=== PATIENT | male | born 1955 | race Caucasian/White ===

== ENCOUNTER 2025-05-18 19:40 | Inpatient (IN) | payer MEDICARE, BC ==
[~2025-05-18] VITALS: Ht 175.3 cm; Wt 88.6 kg
[~2025-05-18 19:40] MED LIST: ALBU10.7 NEB; ASPI-1071 PO; ATOR40TA72 PO; CEFA1PIG IV; CHOL50004 PO; EMPA10TA PO; LACT1CAP26 PO; LISI5TAB22 PO; METO-395 PO; OMEP20CA16 PO; RIFA300C65 PO; SPIR25TA PO; SYN0.088T PO; VITAMIN B12 PO
--- NOTE | 2025-05-18 19:52 | Physician Documentation ---
History of Present Illness ~ Chief Complaint: Knee Pain Stated Complaint: SWOLLEN LEG Time Seen by MD: 20:55 HPI MSE: This is a 70-year-old male who presents to the emergency department due to two days of steadily increasing pain and redness in his right knee. He was admi tted to this hospital on 04/29/2025 through 05/04/2025 for a debridement and revision of spacer an infected right prosthetic knee. He had staph aureus and Gram-positive cocci grow out in the knee joint and also blood cultures that were positive for gram-positive cocci. He was discharged home on intravenous antibiotics through a PICC line. Reports that that was taken out two days ago along with the drains. He denies chills or fever, chest pain or shortness of breath. He has had no nausea or vomiting. He rates his right knee pain 8/10. He is on blood thinners. HPI: The patient tells me that over the past 24 hours his right knee has doubled in size, has a become red and hot and very painful. He has increased swelling in both of his legs including his left leg. This is also new. No fevers, chills, or other associated symptoms. No drainage from the wound. He is still on IV antibiotics via his PICC line. He has been taking them regularly. The drains from his knee were removed 2 days ago. His surgeon was Dr. Slick jarvis 5 years: Yes Medication Reconciliation Allergies: Uncoded Allergies: SHELFISH (Adverse Reaction, Unknown, SWELLING/ITCHING, 07/23/23) Scheduled Aspirin (Ecotrin*), 1 TAB PO DAILY, (Reported) Atorvastatin Calcium (Atorvastatin Calcium), 1 TAB PO DAILY, (Reported) Cefazolin Sodium/Dextrose,Iso (Cefazolin 1 Gm-D5w Bag), 1 GM IV Q8H Cholecalciferol (Vitamin D3) (Vitamin D3), 1 CAP PO TWICE WEEKLY, (Reported) Empagliflozin (Jardiance), 10 MG PO DAILY Lactobacillus Rhamnosus (Culturelle), 10,000 MMU PO BID Levothyroxine Sodium* (Synthroid*), 150 MCG PO DAILY, (Reported) Lisinopril (Lisinopril), 5 MG PO DAILY Metoprolol Succinate (Metoprolol Succinate), 0.5 TAB PO DAILY Omeprazole (Omeprazole), 1 CAP PO DAILY, (Reported) Rifampin (Rifampin), 300 MG PO BID Spironolactone (Aldactone), 25 MG PO DAILY@0830 [Vitamin B12], 1,000 MCG PO DAILY, (Reported) Scheduled PRN Albuterol Sulfate/Budesonide (Airsupra 90-80 Mcg Inhaler), 1 PUFF NEB Q4H PRN for SOB or wheezing, (Reported) Past Medical History Past Medical History: *CARDIOVASCULAR* Past Surgical History: orthopedic surgeries Alcohol Use: None Drug Use: none Lives with: Spouse Lives In: Home Review of Systems ROS As stated above in the HPI, otherwise all systems are reviewed and negative. Physical Exam Vital Signs: Temperature: 98.3, Source: Oral, Heart Rate: 59, Respiratory Rate: 16, BP: 159/80, Pulse Oximetry: 99, Weight: 88.600 Physical Exam General: This is a pleasant middle-aged man sitting in a wheelchair, is sitting in a chair next to him Respiratory: Normal work of breathing, no respiratory distress. Cardiovascular: Regular rate and rhythm, normal-appearing perfusion to the legs Extremities: Left lower extremity: The patient does have pitting edema to the calf but no tenderness Right lower extremity: The patient has a postsurgical incision over the anterior right knee. There is significant swelling, erythema and warmth over the anterior knee. It is very tender to palpation in this region. He also has pitting edema extending up the leg to the knee. Neurologic: Oriented x3 Psychiatric: Appears mildly anxious about his condition but is very pleasant and cooperative Progress Results/Orders Results/Orders Orders - EDY ELIZABETH MD ESR (05/18/25 20:57) Page Hospitalist (05/18/25 21:29) Completed Orders - EDY ELIZABETH MD Morphine 4mg/Ml Inj. (Morphine Inj.) (05/18/25 21:20) Ondansetron Inj. (Zofran 4mg/2ml Vial) (05/18/25 21:20) Vital Signs 05/18/25 05/18/25 19:42 20:51 Temp 98.3 Pulse 59 Resp 16 18 B/P (MAP) 159/80 Pulse Ox 99 Laboratory Tests Test 05/18/25 20:13 White Blood Count 5.4 Red Blood Count 3.19 L Hemoglobin 10.1 L Hematocrit 29.9 L Mean Corpuscular Volume 93.6 Mean Corpuscular Hemoglobin 31.6 H Mean Corpuscular Hemoglobin Concent 33.8 Red Cell Distribution Width 13.5 Platelet Count 287 Mean Platelet Volume 8.4 Neutrophils (%) (Auto) 52.1 Lymphocytes (%) (Auto) 16.4 L Monocytes (%) (Auto) 15.4 H Eosinophils (%) (Auto) 14.9 H Basophils (%) (Auto) 1.2 H Neutrophils # (Auto) 2.8 Lymphocytes # (Auto) 0.9 L Monocytes # (Auto) 0.8 Eosinophils # (Auto) 0.8 Basophils # (Auto) 0.1 CBC Comment Differential Total Cells Counted 100 Neutrophils % (Manual) 53.0 Band Neutrophils % 5.0 Lymphocytes % (Manual) 17.0 L Monocytes % (Manual) 13.0 H Eosinophils % (Manual) 12.0 H Platelet Estimate Normal Red Blood Cell Morphology Perf Poikilocytosis 1+ Basophilic Stippling Anisocytosis 1+ Sodium Level 140 Potassium Level 4.2 Chloride Level 107 Carbon Dioxide Level 28.4 Anion Gap 5 L Blood Urea Nitrogen 18 Creatinine 1.19 H Estimated GFR/1.73 m2 61 BUN/Creatinine Ratio 15.1 Glucose Level 118 H Lactic Acid Level 1.1 Calcium Level 8.1 L Magnesium Level 2.0 C-Reactive Protein 4.01 H Albumin 2.8 L Procalcitonin < 0.05 Chemistry Comments Consults/PCP Consults/PCP : Additional Comment Consult: I spoke to Dr. Cabrera, orthopedics team. He recommends admission and he will alert Dr. Kruger to consult on the patient tomorrow Consult: I spoke to the internal medicine service, for admission in the hospital Medical Decision Making Additional information obtaine: old records Findings Reviewed records from recent hospitalization. General Diff Dx:Considerations: Include: Abrasion, Contusion, Fracture, Hematoma, Laceration, Malunion, Neurovascular injury, Open fracture, Sprain, Ulcer, Other Knee Diff Dx:Considerations: Include: Other; Unlikely: Arthritis Ankle Diff Dx:Considerations: Include: Other; Unlikely: Arthritis Foot Diff Dx:Considerations: Include: Other; Unlikely: Arthritis Toe Diff Dx:Considerations: Include: Cellulitis, Other Additional Comment Most Likely Diagnoses Cellulitis at or near the prosthetic joint or PICC line site is likely, given new erythema and worsening pain without systemic symptoms. Cellulitis typically presents with localized erythema, pain, swelling, and warmth, and fever is often absent, especially in older adults or those on antibiotics. Localized infection at the PICC site can present similarly, with erythema, induration, and tenderness at the exit or tunnel site.[1-2] Recurrent or persistent periprosthetic joint infection (PJI) should be considered, as PJI can present with pain, erythema, and swelling, often without fever, particularly in chronic or partially treated cases. Local signs may be subtle, and systemic symptoms may be blunted by ongoing antibiotics.[3] Superficial vein thrombosis (SVT) or catheter-associated thrombophlebitis is possible, especially in the limb with a PICC line. SVT presents as a tender, erythematous, palpable cord, and is commonly associated with indwelling catheters.[4] Antibiotic-related hypersensitivity dermatitis may present as localized erythema and pain, but is less likely if the reaction is not pruritic or widespread and is associated with pain rather than itching.[5] Most Important Not to Miss Diagnoses Necrotizing soft tissue infection (NSTI) must be excluded, as it can initially mimic cellulitis but rapidly progresses with severe pain (often out of proportion to exam), edema, skin necrosis, or systemic toxicity. Absence of fever does not rule out NSTI, especially in immunocompromised or elderly patients. Serial exams and laboratory risk assessment (e.g., LRINEC score) are critical; any rapid progression or systemic deterioration warrants urgent surgical evaluation.[6] Catheter-related bloodstream infection (CRBSI) is a critical consideration, as local PICC site infection can progress to bacteremia or sepsis. Diagnosis requires blood cultures from the catheter and a peripheral site, and exclusion of other infection sources.[7] Acute septic arthritis or contiguous osteomyelitis should be considered if there is new or worsening joint pain, swelling, or decreased range of motion, even in the absence of fever. Synovial fluid analysis and imaging may be required for diagnosis.[3][8] Assessment The patient presents with redness, swelling, pain, and warmth to his right knee. His exam is concerning for an infection again. He is already on antibiotics. Labs show no significant leukocytosis. Inflammatory markers are pending. Orthopedics team was consulted as above. He will be admitted to the medicine service for antibiotics and surgical consult. Was given pain medication. Departure Impression: Primary Impression: Infected prosthetic knee joint Referrals: NO PRIMARY CARE PROVIDER (PCP) Signature Scribe Signature: x Attestation: The note accurately reflects work and decisions made by me.Dexter Devlin NP 05/18/25 19:59 DEXTER PRESLEY NP May 18, 2025 19:52 EDY ELIZABETH MD May 18, 2025 21:34
--- NOTE | 2025-05-18 20:20 | RADIOLOGY REPORT ---
CHEST RADIOGRAPH REASON FOR EXAM: SEPSIS COMPARISON: ANGIO LINE PLACEMENT(PICC NURSE) on DOS: 05/04/25, DI CHEST,SINGLE VIEW on DOS: 04/29/25 TECHNIQUE: One view of the chest is provided FINDINGS: The cardiomediastinal silhouette is stable. There is persistent elevation of the right hemidiaphragm. There is no lobar consolidation. There is no significant pleural effusion. There is no pneumothorax. No acute osseous abnormality is identified. IMPRESSION: Persistent elevation of the right hemidiaphragm. No lobar consolidation.
--- NOTE | 2025-05-18 20:29 | ELECTROCARDIOGRAPH REPORT ---
[facility] Test Date: 2025-05-18 Test Time: 20:26:12 Pat Name: JOE PRATT Department: [facility] Patient ID: [facility]-[id number] Room: [place] [address] Gender: M Packager Hand: : 1955 Requested By: DEXTER PRESLEY Order Number: [id number] Reading MD: Dr. Zoran Gardiner Measurements Intervals [place] Rate: 55 P: 45 KS: 135 QRS: -5 QRSD: 107 T: -12 QT: 412 QTc: 394 Interpretive Statements Sinus bradycardia RSR' in V1 or V2, right VCD or RVH Inferior infarct, age indeterminate Electronically Signed On 05-22-2025 20:44:[address] Zoran Gardiner Please click the below link to view image of tracing.
[2025-05-18 20:30] LABS: MEAN PLATELET VOLUME 8.4 FL (7.4-10.4); RED CELL DISTRIBUTION WIDTH 13.5 % (11.5-14.5)
[2025-05-18 20:43] LABS: CREATININE 1.19 MG/DL (0.60-1.10); TOTAL CARBON DIOXIDE 28.4 MMOL/L (24-32); eCRCL 59 ML/MIN; eGFR 61 ML/MIN
--- NOTE | 2025-05-18 20:59 | RADIOLOGY REPORT ---
EXAM: DI KNEE 3 VWS REASON FOR EXAM: swelling, pain TECHNIQUE: AP, lateral, and oblique views of the right knee are submitted for review. COMPARISON: None FINDINGS: There is no acute fracture or dislocation. There is total knee arthroplasty. There is no evidence of hardware loosening. There is no significant knee effusion. There is [id number] soft tissue edema about the knee. IMPRESSION: No acute fracture or dislocation. [id number] soft tissue edema about the knee.
[2025-05-18 21:08] LABS: BANDS% (MANUAL) 5.0 % (0-10); EOSINOPHILS % (MANUAL) 12.0 % (0-6); LYMPHOCYTES % (MANUAL) 17.0 % (21-51); MONOCYTES % (MANUAL) 13.0 % (2-12); NEUTROPHILS % (MANUAL) 53.0 % (42-75)
[2025-05-18 21:09] LABS: PLATELET ESTIMATE NORMAL
[2025-05-18] MEDS: morphine 4 MG/ML inj SYRINge IV ONE (21:33)
[2025-05-18] MEDS: ondansetron/PF 4mg/2ml inj IV ONE (21:33)
[2025-05-18] MEDS ORDERED: magnesium Cl slow-release 64mg tablet PO PRN (21:55)
[2025-05-18] MEDS ORDERED: magnesium sulf-water 2g/50mL 50 ML IV PRN (21:55)
[2025-05-18] MEDS ORDERED: potassium Cl 20 mEq SR tablet PO PRN ×2 (21:55)
[2025-05-18] MEDS ORDERED: magnesium sulf-water 4G/100mL 100 ML IV PRN (21:55)
[2025-05-18] MEDS ORDERED: ondansetron 4mg rapidly disintigrating tab PO PRN (21:55)
[2025-05-18] MEDS ORDERED: mag hydrox/Alum hydrox/simeth 30ml oral suspension PO PRN (21:55)
[2025-05-18] MEDS ORDERED: potassium Cl 40MEQ/1/2NS 520ml 520 ML IV PRN (21:55)
[2025-05-18] MEDS ORDERED: ondansetron/PF 4mg/2ml inj IV PRN (21:55)
[2025-05-18] MEDS ORDERED: magnesium hydroxide 30ml (MOM) UD suspension PO PRN (21:55)
--- NOTE | 2025-05-18 22:07 | HISTORY AND PHYSICAL-Residence ---
History & Physical Providers to CC Resident Creating Document: QUANG SANCHEZ, RES ~ History of Present Illness Reason for Admit\Complaint: Right knee Swelling History of Present Illness This is a 70-year-old male who presents to the emergency department with a 2-day history of progressively worsening right knee pain, swelling, and erythema. The patient reports that over the past 24 hours, his right knee has doubled in size becoming increasingly red, warm, and painful, with a pain severity of 8/10. He also notes new swelling in his left leg, which he has not experienced before. He denies fever, chills, chest pain, shortness of breath, nausea, vomiting, or drainage from the surgical site. 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 Cultures from the joint and blood were positive for Staphylococcus aureus and Gram-positive cocci. He was discharged home on IV Cefazolin via a PICC line for 6weeks, which was removed two days ago along with surgical drains. He reports adherence to the antibiotic regimen. His orthopedic surgeon is Allergies: Uncoded Allergies: SHELFISH (Adverse Reaction, Unknown, SWELLING/ITCHING, 07/23/23) Home Medications Home Medications Active Cefazolin 1 Gm-D5w Bag (Cefazolin Sodium/Dextrose,Iso) 1 Gram/50 Ml Piggyback 1 Gm IV Q8H 42 Days Metoprolol Succinate 25 Mg Tab.sr.24h 0.5 Tab PO DAILY 30 Days Jardiance (Empagliflozin) 10 Mg Tablet 10 Mg PO DAILY 30 Days Culturelle (Lactobacillus Rhamnosus) 10 Billion Cell Capsule 10,000 Mmu PO BID 30 Days Aldactone (Spironolactone) 25 Mg Tablet 25 Mg PO DAILY@0830 30 Days Lisinopril 5 Mg Tablet 5 Mg PO DAILY 28 Days Rifampin 300 Mg Capsule 300 Mg PO BID 42 Days Reported Synthroid* (Levothyroxine Sodium) 88 Mcg Tablet 150 Mcg PO DAILY 30 Days Airsupra 90-80 Mcg Inhaler (Albuterol Sulfate/Budesonide) 90 Mcg-80 Mcg/Actuation Hfa.aer.ad 1 Puff NEB Q4H PRN Omeprazole 20 Mg Capsule.dr 1 Cap PO DAILY Vitamin D3 (Cholecalciferol (Vitamin D3)) 125 Mcg (5000 Unit) Capsule 1 Cap PO TWICE WEEKLY [Vitamin B12] 1,000 Mcg PO DAILY Atorvastatin Calcium 40 Mg Tablet 1 Tab PO DAILY Ecotrin* (Aspirin) 81 Mg Tablet. 1 Tab PO DAILY Past Medical History Past Medical History Maricruz's thyroiditis MT s/p stent CAD Seasonal asthma Past Surgical History Surgical History Comment Total Right knee replacement Revision of right knee replacement on April 10, 2025 Left wrist fusion Right shoulder repair for torn rotator cuff Placement of stent for MT Past Social History Social History Comment He quit smoking 30 years ago, he used to smoke a pack a day for approximately 10 years He denies alcohol and recreational drug use Alcohol Use: None Drug Use: None Lives with: Spouse Lives In: Home ROS Constitutional: Reports: no symptoms reported Eyes: Reports: no symptoms reported ENT: Reports: no symptoms reported Respiratory: Reports: no symptoms reported Cardiovascular: Reports: no symptoms reported Gastrointestinal: Reports: no symptoms reported Genitourinary: Reports: no symptoms reported Male Genitalia: Reports: no symptoms reported Neurological: Reports: no symptoms reported Musculoskeletal: Reports: pain, joint pain (Right knee pain+ swelling), joint swelling Integumentary: Reports: no symptoms reported Allergic/Immunologic: Reports: no symptoms reported Hematologic/Lymphatic: Reports: no symptoms reported Endocrine: Reports: no symptoms reported Psychiatric: Reports: no symptoms reported Exam Vitals: Vital Signs Date Time Temp Pulse Resp B/P (MAP) Pulse Ox O2 Delivery O2 Flow Rate FiO2 05/18/25 20:51 18 05/18/25 19:42 98.3 59 99 General: GENERAL: Awake, alert, oriented. HEENT : Normocephalic, atraumatic, pupils equal and reactive to light, extraocular movements intact, no scleral icterus or conjunctival pallor, oral mucosa moist NECK: neck is supple, trachea midline, no lymphadenopathy, no thyromegaly, no JV distention RESPIRATORY: Chest expansion equal bilaterally, breath sounds vesicular, no wheezes, or rhonchi. No use of accessory muscles, no tenderness on palpation. CARDIOVASCULAR: S1 and S2 heard, no murmurs, no rubs, or gallops ABDOMEN: Soft, nontender, nondistended, bowel sounds present and normoactive. NEUROLOGICAL: Alert, oriented, normal memory, speech is normal Cranial nerves II-XII- intact Motor strength 5/5 Sensation-intact in all extremities Reflexes +2 and symmetrical Coordination is intact EXTREMITIES: Right knee swelling+redness+warm+Tender to touch, PICC line on left hand, peripheral pulses felt, No deformities Psychiatric:Appropriate mood and affect,No hallucinations or suicidal ideation Diagnostic Data Last Recorded Lab Results: 05/19/2515205/19/25152 Advance Care Planning Advanced Care plannin - 30 Minutes Additional Plan 70 years old male with past medical history of coronary artery disease, hypothyroidism is currently evaluated for right knee swelling Right Knee Swelling S/P infected Knee Prosthesis Vitals are stable, WBC is normal, procalcitonin is normal,ESR 54, CRP 4.01- elevated Knee XRay- No acute fracture or dislocation. [id number]-[id number] soft tissue edema about the knee. Patient recently discharged with 6 weeks course of ABX, today patient presents with Redness and swelling around right knee joint ED Doctor consulted surgeon Continue Abx- Cefazolin 1g IV Q8H and Rifampin Po 300mg BID Started IV NS 100 ml/hr Monitor daily CBC/CMP Normocytic normochromic anemia H&H-10.1/29.9 Iron 18, TIBC 179, % saturation-10 PRBC if Hb is less than 7 Moderate protein malnutrition Continue ensure enlive PO Hypothyroidism History of Maricruz's thyroiditis Started home med levothyroxine 150 mcg CAD, history of MT s/p stent placement Chronic Congestive heart failure with reduced ejection fraction-LVEF is 45% on 05/01/25-not in acute decompensation CXR -Persistent elevation of the right hemidiaphragm. No lobar consolidation. Patient home meds are Lisinopril 5mg , metoprolol tartrate 25 mg at home, continue home med- Lisinopril med rec is pending Continue home med Jardiance, Spironolactone Code Status: Full DVT prophylaxis: SCDs Analgesia/Sedation: Morphine Line/tube: PICC PT: Ordered Prognosis: Guarded Disposition: Patient will be monitored in surgery Quang Sanchez PGY1-Internal Medicine Resident Date of Service: May 18, 2025 Billing Provider: ANUSHA RAPHAEL MD Addendum Attestation I agree with the residents assessment and plan as below: 70 year old male with hfref and CAD admitted with knee swelling. he has hx of surgery to the knee complicated by an infection requiring long course of abx Plan: restart cefazolin and rifampin ortho consult PT and OT levothyroxine at home dose restart home DDMT medications CCT 54 min using HIPPA compliant A/V technology QUANG SANCHEZ, RES May 18, 2025 22:07 ANUSHA RAPHAEL MD May 19, 2025 19:42
[2025-05-18] MEDS ORDERED: SPIR25TA5 PO (22:08)
[2025-05-18] MEDS ORDERED: OXYC5TAB2 PO (22:08)
[2025-05-18] MEDS: normal saline 1000ml 1,000 ML IV SCH (22:37)
[2025-05-19] VITALS (22 sets, daily range): BP systolic 124–172; BP diastolic 55–82; PULSE 56–98; RESP 12–18; TEMP 97.6–99.6; O2SAT 88–99
[2025-05-19] MEDS: HYDROcodone/acetaminophen 5mg/325mg tablet PO ONE (01:53)
[2025-05-19 02:23] LABS: MEAN PLATELET VOLUME 8.5 FL (7.4-10.4); RED CELL DISTRIBUTION WIDTH 13.4 % (11.5-14.5)
[2025-05-19 02:45] LABS: CREATININE 0.87 MG/DL (0.60-1.10); TOTAL CARBON DIOXIDE 27.8 MMOL/L (24-32); eCRCL 81 ML/MIN; eGFR 87 ML/MIN
[2025-05-19 02:50] LABS: % IRON SATURATION 10 % (11-46)
[2025-05-19 03:46] LABS: LEUKOCYTE ESTERASE ,URINE NEGATIVE (Neg); NITRITES, URINE NEGATIVE (Neg); OCCULT BLOOD,URINE SMALL (Neg)
[2025-05-19 03:52] LABS: UA COLLECTION TYPE NON-SPECIFIED
[2025-05-19 03:53] LABS: SQUAMOUS EPITHELIAL CELL,UR FEW /LPF (FEW)
[2025-05-19 03:55] LABS: YEAST FEW /HPF (NEGATIVE)
[2025-05-19] MEDS ORDERED: levoTHYROXINE 88mcg tablet PO SCH (07:00)
[2025-05-19] MEDS ORDERED: levoTHYROXINE 75mcg tablet PO SCH (07:28)
[2025-05-19] MEDS: levoTHYROXINE 75mcg tablet PO SCH (07:29)
[2025-05-19] MEDS: EMPAGLIFLOZIN 10 MG TABLET PO SCH (08:00)
[2025-05-19] MEDS: Ensure Enlive - 237ML PO SCH (08:00)
[2025-05-19] MEDS: aspirin 81mg, enteric-coated 1 TAB TABLET.DR PO SCH (08:00)
[2025-05-19] MEDS ORDERED: metoprolol succinate 25mg (24-HOUR) SR. Tablet PO SCH (08:00)
[2025-05-19] MEDS: K and/or MAG REPLACEMENT MC SCH (08:00)
[2025-05-19] MEDS: docusate sod 100mg capsule PO SCH (08:00)
[2025-05-19] MEDS: ceFAZolin/D5W- 1GM premix 50 ML IV SCH (09:13)
[2025-05-19] MEDS ORDERED: oxyCODONE/APAP 5-325mg tablet PO PRN (09:25)
[2025-05-19] MEDS ORDERED: vancomycin inj 1,000 MG in normal saline 250ml IV soln 250 ML IV ONE (09:30)
[2025-05-19] MEDS ORDERED: hydrALAZINE 20mg/ml inj. IV PRN (10:35)
[2025-05-19] MEDS ORDERED: morphine 4 MG/ML inj SYRINge IV PRN (10:35)
[2025-05-19] MEDS: ringers solution, lacted 1,000 ML IV SCH (10:35)
[2025-05-19] MEDS ORDERED: ondansetron/PF 4mg/2ml inj IV PRN (10:35)
[2025-05-19] MEDS ORDERED: labetalol 20mg/4ml (5mg/ml) syringe IV PRN (10:35)
[2025-05-19] MEDS ORDERED: HYDROmorphone/PF 0.2 MG/ML SYRINGE IV PRN ×2 (10:35)
[2025-05-19] MEDS: vancomycin/NS 1 GM ADD-VANTAGE 250 ML IV SCH (11:00)
[2025-05-19 11:23] LABS: PRE OP INR 1.1 INR; PRE OP PARTIAL THROMB. TIME 33.0 SECONDS (22-32); PRE OP PROTIME 11.4 SECONDS (9.0-12.0)
[2025-05-19] MEDS ORDERED: tetracaine 1% (10mg/ml) pres. free inj. ONE (11:53)
[2025-05-19] MEDS ORDERED: MIDAZolam 1mg/ml 10ml vial ONE (11:54)
[2025-05-19] MEDS ORDERED: fentaNYL/PF 50MCG/1 ML 2ML syringe ONE (11:55)
--- NOTE | 2025-05-19 12:20 | PROGRESS NOTE ---
H&P - Interval Note Providers to CC ~ Patient examined and condition: Yes Interval changes as follows: none MATIAS MCKEON MD May 19, 2025 12:20
--- NOTE | 2025-05-19 12:32 | CONSULTATION REPORT ---
CONSULTATION REPORT CONSULTATION REPORT Visit Date: 05/19/2025 Drug Allergy SHELL FISH Active Medications levothyroxine 150 mcg tablet Take 1 Tablet(s) Oral daily 90 days, 90 days. albuterol-budesonide inhalation oxycodone 5 mg tablet Take 1 Tablet(s) Oral every 6 hours as needed for pain 7 days, 7 days. Completed Rx. acetaminophen 500 mg tablet Take 1 Tablet(s) Oral three times a day as needed for pain 33 days, 33 days. Completed Rx. losartan 50 mg tablet, oral. ibuprofen 600 mg tablet Take 1 Tablet(s) Oral three times a day 30 days, 30 days. Completed Rx. metoprolol tartrate 50 mg tablet Take 1 Tablet(s) Oral two times a day with food 90 days, 90 days. aspirin 81 mg tablet,delayed release, oral. aspirin 325 mg tablet TAKE 1 TABLET BY MOUTH EVERY DAY FOR ONE MONTH AFTER SURGERY 90 days 1 refill, 90 days. Completed Rx. Airsupra inhalation omeprazole 20 mg capsule,delayed release Take 1 Tablet(s) Oral daily 90 days, 90 days. Fall Risk Assessment Any falls, or one fall without injury in the past year: No falls, or one fall without injury in the past year. No Active Problems Heart disease Thyroid problems Surgical History (38033) Revision, Total Knee Arthroplasty, 1 component; Performed: 04/10/2025 Cardiac surgery Notes: stents placed x9 Knee replacement shoulder surgery Notes: right rotator cuff Social History Marital status Tobacco history Former smoker over 40 years Alcohol history Never drinks alcohol in the past only Family History Relationship: Father Recorded Date: May 26, 2023 Notes: Alive Relationship: Mother Recorded Date: May 26, 2023 Notes: Breast Cancer HPI Presented yesterday to the hospital again because of extreme knee pain and increased swelling. Vitals Physical Exam Constitutional: general appearance- Overall: well developed, in no acute distress and well n ourished Psychiatric: orientation/consciousness- Level of consciousness: alert; Overall: oriented to person, place and time; behavior/psychomotor activity; Mental Status alert and oriented x3; Mood: appropriate emotional responses Musculoskeletal: head and neck- Head: normocephalic; digits and nails; Overall: no clubbing and digits benign Ears/Nose/Throat: general ENT exam- eyes Pupils equal and reactive to light; ears normal hearing, ear canals, and tympanic membranes; nose normal nares with no obstruction; throat normal pharynx Neurologic: coordination- Overall: no tremors; motor; Overall: normal bulk, tone Cardiovascular: extremities- Overall: no edema; auscultation of heart; Overall: regular rate, regular rhythm, normal heart sounds and no murmurs Respiratory: respiratory effort/rhythm- Overall: no retractions and normal rate; auscultation; Overall: breath sounds clear bilaterally; percussion; Overall: benign percussion Abdomen: abdominal exam- Overall: no tenderness and normal bowel sounds Integument: inspection of skin- Overall: no rash, lesions Physical Exam Physical examination does indeed show that the right knee is very swollen and tender. It is warm. There is no particular erythema. Range of motion of the knee is quite painful. Diagnosis [id number] Infection and inflammatory reaction due to internal right knee prosthesis, initial encounter Services Performed [id number] Initial Hospital Inpatient or Observation Care - Moderate Level, 55 mins Plan Patient will be kept NPO and will be taken to the operating room today for surgery as soon as possible. He has already had an attempt at debridement and closure so he will now undergo removal of his total knee arthroplasty with plans for his two stage reconstruction. Risks benefits potential complications and expected results of this have been explained to the patient and his family they wished to proceed A copy of this note was faxed to: Jasmina Serrato PA-C Electronically signed by: Carloz Kruger MD, YESY BHATTI Board Certified Sports Medicine Diplomate, [place] [employer] Fellow, [employer] ~ [employer] ORDER PLACED: CARLOZ Millard MD May 19, 2025 12:32
[2025-05-19] MEDS ORDERED: vancomycin 1,000mg inj ONE ×2 (13:02)
[2025-05-19] MEDS ORDERED: ePHEDrine 50MG/ML INJ. ONE (14:29)
--- NOTE | 2025-05-19 15:32 | OPERATIVE REPORT ---
Operative Report Operative Report OPERATIVE REPORT [facility] [address] [place] [address] Date of service: May 19, 2025 PREOPERATIVE DIAGNOSIS [id number] Infection and inflammatory reaction due to internal right knee prosthesis, initial encounter POSTOPERATIVE DIAGNOSIS [id number] Infection and inflammatory reaction due to internal right knee prosthesis, initial encounter Operation Performed [id number] Removal, Knee Prosthesis, w/wo Spacer Insertion with this modifier: RT Procedure: Removal, right total knee arthroplasty with implantation of antibiotic spacer. Surgeon: Dr. Carloz Kruger Gluing Machine Adjuster: None Anesthesiologist: Dr. Lujan Anesthesia: General anesthetic and left femoral block Indications: 70-year-old male who recently underwent revision surgery followed by near immediate infection with debridement, now on antibiotic treatment but admitted for increasing pain. Admitted to the hospital with recurrent infection Indications for assistant winemaker surgeon: A second set of skilled hands with specific orthopedic knowledge of the surgical procedure and orthopedic surgical techniques was necessary to accomplish this operation successfully, and with the least amount of morbidity for the patient. This facilitated operative exposure, manipulation and handling of tissues, placement of any implants, and accompl ishment of wound closure. The assistant winemaker surgeon facilitated tissue exposure during the surgical dissection. The assistant winemaker surgeon aided with manipulation of materials and implantation of implants. The assistant winemaker surgeon and the operating surgeon cooperated together in wound closure. Findings: The femoral component was fixated but the interface was loosened without difficulty potentially indicating chronic infection of the subacute nature. The tibial component was solidly fixated. The patellar component was solidly fixated. There is purulent fluid and purulent material within the joint. Complications: None Estimated Blood Loss: 500 cc Implants: Antibiotic impregnated cement spacers were utilized. A large femoral component was used, and a size medium tibial component was used. Rally G. cement was utilized. Procedure: The risks, benefits, expected results, and possible complications of the planned procedure had been explained to the patient and informed consent obtained. The patient was taken to the operating room and underwent ageneral anesthetic. The patient was placed in the supine position on the operating table, and the right leg was prepped and draped in the usual fashion. A timeout was taken prior to surgery, confirming patient identification, operative side operative site, planned procedure, administration of pre-operative antibiotics, site marking, and presence of all necessary implants and instruments, x-rays and equipment. A standard surgical approach was performed through the prior surgical incision, with a medial parapatellar arthrotomy, and midline quadriceps split. Prior to performing the retinacular incision, a spinal needle was placed into the joint and synovial fluid removed. The fluid was cloudy and yellow, and appeared infected. It was sent to the laboratory for analysis, including Gram stain and culture and sensitivity. Additional tissue samples were also sent. Time was then spent removing excessive synovial tissue and exposing the medial and lateral gutters, as well as exposing the tibial, femoral, and patellar components.. The patella was mobilized to be able to be retracted laterally. This gave exposure of the anterior aspect of the knee. After exposing all 3 component,s the stability of each component as it related to its fixation to the bone was visualized, and findings were as noted above. At this point I decided that the primary reason for the patients continued pain and difficulties was because the knee had a chronic infection. I therefore decided to proceed with removal of implants and placement of an antibiotic spacer. I then spent a considerable length of time meticulously dissecting between compo nents and bone with thin flexible osteotomes and a small saw blade blade, in order to remove the components without excessive bone loss. The femoral component was addressed first and was removed without excessive loss of bone. Next, we removed the tibia in a similar fashion, and the tibia was removed without excessive loss of bone. Finally, the patella was removed with an oscillating saw, followed by removal of remaining cement and plastic pegs with a small rongeur and a curette. Next, we spent a fair bit of time performing meticulous resection of inflamed synovial tissue and making sure that every single bit of residual bone cement was removed from the end of the femur and from the proximal tibia. I sized the femoral and tibial residual bone and also compared with sizing of the previously implanted components, and selected the proper Remedy antibiotic spacer sizes for both femur and tibia. Trials were then removed and cut surfaces of bone and the soft tissue was lavaged with the pulsating lavage system. A tourniquet was inflated to 300 mmHg after exsanguination of the leg with an Esmarch. I did meticulous, final cleanup of soft tissue and removal of remnants of bone cement. 2 batches of cement were mixed and the spacers were implanted in the usual fashion. We gained excellent fill of the space and reasonable stability of the knee. Biodegradable antibiotic beads were also placed in the knee joint. While the second batch of cement was curing the knee was also injected with our ropivacaine anesthetic mixture containing 1% ropivacaine, 30 mg of Toradol, and 70 cc of saline. Upon complete hardening of all cement, the knee was inspected and excess cement removed. We lavaged the knee to wash out any debris and checked to make sure we had no impinging cement. The tourniquet was then deflated and hemostasis obtained with electrocautery. The wound was then irrigated thoroughly one more time. The retinacular incision was closed with #2 strata fix suture, and subcutaneous tissue closed with #0 strata fix suture. Skin was closed with 4-0 strata fix suture. A sterile dressing was applied, and the patient was returned to the recovery room in satisfactory condition. Electronically Signed by: Carloz Kruger MD Doctor, Orthopedic Surgery Signed on: 05/19/2025 03:31 PM CARLOZ KRUGER MD May 19, 2025 15:32
[2025-05-19] MEDS: piperacillin/tazo 4.5gm/100ml 100 ML IV SCH (19:55)
--- NOTE | 2025-05-19 20:20 | PROGRESS NOTE ---
Daily Progress Note Providers to CC ~ Antibiotic Timeout Antibiotic Ordered?: Yes Subjective Spoke to Dr. Kruger orthopedic surgeon this morning and changed antibiotics to IV Zosyn and IV vancomycin the patient has subsequently went to the OR and had his hardware removed from his right knee. Evaluated the patient postop Objective Vital Signs Date Time Temp Pulse Resp B/P (MAP) Pulse Ox O2 Delivery O2 Flow Rate FiO2 05/19/25 19:00 20 05/19/25 16:50 138/70 (92) 05/19/25 16:20 64 92 Nasal Cannula 2.0 05/19/25 14:55 97.5 Result Diagram: 05/19/25 0153 05/19/25 0153 Gen. No acute distress alert and oriented 4 Lungs clear to ascultation bilaterally, no wheezes rales or rhonchi appreciated Heart normal sinus rhythm no murmurs rubs or clicks noted Abdomen soft nontender bowel sounds are normoactive Lower extremities no clubbing cyanosis, nor edema appreciated left, long postop dressing and Velcro brace is in place on the right Coagulation Studies Laboratory Tests Test 05/19/25 10:58 Prothrombin Time 11.4 SECONDS (9.0-12.0) INR International Normalized Ratio 1.1 INR Activated Partial Thromboplast Time 33 SECONDS (22-32) H Problem\Assessment\Plan Problems/Diagnosis: (1) Infected prosthetic knee joint Right Knee Swelling S/P infected Knee Prosthesis Vitals are stable, WBC is normal, procalcitonin is normal,ESR 54, CRP 4.01- elevated Knee XRay- No acute fracture or dislocation. Uoai-gw-xiyoaoas soft tissue edema about the knee. Patient recently discharged with 6 weeks course of ABX, today patient presents with Redness and swelling around right knee joint ED Doctor consulted surgeon 05/[address] Kruger orthopedic surgeon this morning and changed antibiotics to IV Zosyn and IV vancomycin the patient has subsequently went to the OR and had his hardware removed from his right knee- also sent a text message to consult Dr Amanda Jang DO Infectious Disease who will consult on the patient Normocytic normochromic anemia Continue monitor daily labs PRBC if Hb is less than 7 Moderate protein malnutrition Continue ensure enlive PO Hypothyroidism History of Maricruz's thyroiditis Started home med levothyroxine 150 mcg CAD, history of [place] s/p stent placement Chronic Congestive heart failure with reduced ejection fraction-LVEF is 45% on 05/01/25-not in acute decompensation CXR -Persistent elevation of the right hemidiaphragm. No lobar consolidation. Patient home meds are Lisinopril 5mg , metoprolol tartrate 25 mg at home, continue home med- Lisinopril med rec is pending Continue home med Jardiance, Spironolactone Date of Service: May 19, 2025 Billing Provider: MARY JO FLAHERTY DO Common Visit Codes: [id number] INP/OBS CARE(HIGH) MARY JO FLAHERTY DO May 19, 2025 20:20
[2025-05-19 20:55] LABS: MEAN PLATELET VOLUME 8.3 FL (7.4-10.4); RED CELL DISTRIBUTION WIDTH 13.4 % (11.5-14.5)
[2025-05-20] VITALS (10 sets, daily range): BP systolic 125–152; BP diastolic 57–78; PULSE 80–89; RESP 16–20; TEMP 98.4–102.2; O2SAT 92–95
[2025-05-20 07:10] LABS: MEAN PLATELET VOLUME 8.5 FL (7.4-10.4); RED CELL DISTRIBUTION WIDTH 13.3 % (11.5-14.5)
[2025-05-20 07:37] LABS: CREATININE 0.74 MG/DL (0.60-1.10); TOTAL CARBON DIOXIDE 27.9 MMOL/L (24-32); eCRCL 96 ML/MIN; eGFR > 90 ML/MIN
[2025-05-20] MEDS: metoprolol succinate 25mg (24-HOUR) SR. Tablet PO SCH (07:44)
--- NOTE | 2025-05-20 08:56 | PROGRESS NOTE ---
Daily Progress Note Providers to CC ~ Antibiotic Timeout Antibiotic Ordered?: Yes Subjective The patient has no acute complaints other than pain in his right knee. Last night the the patients RN has a place a pressure dressing since there was bleeding from the surgical site. Objective Vital Signs Date Time Temp Pulse Resp B/P (MAP) Pulse Ox O2 Delivery O2 Flow Rate FiO2 05/20/25 07:43 82 05/20/25 06:30 99.8 19 133/69 (90) 95 05/20/25 02:00 Nasal Cannula 1.0 05/20/25 01:22 94 Result Diagram: 05/20/2560405/20/25604 Gen. No acute distress alert and oriented 4 Lungs clear to ascultation bilaterally, no wheezes rales or rhonchi appreciated Heart normal sinus rhythm no murmurs rubs or clicks noted Abdomen soft nontender bowel sounds are normoactive Lower extremities no clubbing cyanosis, nor edema appreciated left, long postop dressing and Velcro brace is in place on the right Coagulation Studies Laboratory Tests Test 05/19/25 10:58 Prothrombin Time 11.4 SECONDS (9.0-12.0) INR International Normalized Ratio 1.1 INR Activated Partial Thromboplast Time 33 SECONDS (22-32) H Problem\Assessment\Plan Problems/Diagnosis: (1) Infected prosthetic knee joint Right Knee Swelling S/P infected Knee Prosthesis Vitals are stable, WBC is normal, procalcitonin is normal,ESR 54, CRP 4.01- elevated Knee XRay- No acute fracture or dislocation. Eaiy-ck-jklxagyf soft tissue edema about the knee. Patient recently discharged with 6 weeks course of ABX, today patient presents with Redness and swelling around right knee joint ED Doctor consulted surgeon 05/[address] Kruger orthopedic surgeon this morning and changed antibiotics to IV Zosyn and IV vancomycin the patient has subsequently went to the OR and had his hardware removed from his right knee- also sent a text message to consult Dr Amanda Jang DO Infectious Disease who will consult on the patient 05/20 pressure dressing was placed by RN last evening due to some bleeding from the surgical site which is to be expected Normocytic normochromic anemia Post op anemia- expected occurrence with a hardware removal not a complication of surgery Continue monitor daily labs PRBC if Hb is less than 7 Moderate protein malnutrition Continue ensure enlive PO Hypothyroidism History of Maricruz's thyroiditis Continue home med levothyroxine 150 mcg CAD, history of [place] s/p stent placement Chronic Congestive heart failure with reduced ejection fraction-LVEF is 45% on 05/01/25-not in acute decompensation Hyperlipidemia Continue 81 mg aspirin daily Continue atorvastatin Spironolactone Metoprolol succinate Jardiance Lisinopril Hold DVT prophylaxis for now due to postop anemia and bleeding from postop site Date of Service: May 20, 2025 Billing Provider: MARY JO FLAHERTY DO Common Visit Codes: [id number] INP/OBS CARE(HIGH) MARY JO FLAHERTY DO May 20, 2025 08:56
--- NOTE | 2025-05-20 10:41 | PROGRESS NOTE ---
Progress Note Orthopedic Ortho Post Op Day #: 1 Progress Note Patient presented yesterday with obvious septic joint. Lots of bleeding last night following surgery and significant pain. Both improved today. Initiate tissue and fluid cultures are not growing any bacteria but the fluid we looked grossly purulent yesterday and his symptoms were that of recurrent infection. He had previously been on Ancef so it appears the organism is resistant to that drug. Objective Vital Signs Date Time Temp Pulse Resp B/P (MAP) Pulse Ox O2 Delivery O2 Flow Rate FiO2 05/20/25 09:11 16 05/20/25 08:30 Nasal Cannula 1.0 24 05/20/25 07:43 82 05/20/25 06:30 99.8 133/69 (90) 95 Result Diagram: 05/20/25 0605 05/20/25 06 Wound clean and dry, Calves: soft bilaterally, Calves: non-tender bilat Problem/Assessment/Plan Assessment\Plan: Doing Well Improved this morning. Anemic because of blood loss but does not need a transfusion as of yet. Looks like the blood postoperative bleeding a settled down nicely. Awaiting evaluation from Dr. Jang. Cultures from prior hospitalization revealed a sensitive Staphylococcus but he was on treatment intravenous Ancef and despite this had recurrence. MATIAS MCKEON MD May 20, 2025 10:40
--- NOTE | 2025-05-20 21:31 | PROGRESS NOTE ---
Progress Note ID Providers to CC ~ Progress Note Progress Note: Antibiotic Days: Zosyn 1, Vanc 1 Lines: PICC Micro: 04/29 Blood- MSSA 04/30 Operative- MSSA 05/01 Blood- negative 05/18 Blood- ngtd 05/19 Operative- ngtd Subjective: Patient is a 70 year old male, known to me as he is still on a course of Ancef/Rifampin for recently identified R knee PJI. He had been doing well at home until his drains were removed and then he experienced increased pain and swelling. This prompted him to come to the ER on 05/18 and he was taken back to the OR on 05/19 where his hardware was removed. Findings describe purulent material within the joint. New cultures are pending and ID is asked to consult Objective: Vitals: Afebrile, 82, 19, 125/63, 95% on RA General: Alert, NAD CV: Regular Resp: Clear anteriorly Abd: Soft, nontender, nondistended Ext: R knee in postop dressing Lines: PICC occlusively dressed Laboratory Tests 05/20/25 06:05 05/18 Knee No acute fracture or dislocation. Ldic-tq-gyunmvov soft tissue edema about the knee. Assessment: // R knee PJI s/p washout and exchange of the tibial polyethylene 04/30 followed by hardware removal 05/19. Her original cultures grew MSSA and yesterdays (taken on Ancef, Rifampin) are pending but with gram stains negative // Recent MSSA septicemia, source as above. No vegetation on 2D echo. Repeats cleared 05/01 and he remains on his course of treatment // Antibiotic Allergies: none known Plan: - Resume Ancef - Rifampin not needed now that hardware is out - DC Vanc, Zosyn - Follow up pending operative cultures and amend therapy as necessary - May need 6 weeks again from most recent surgery, will see what his new cultures do - Monitor inflammatory markers - Wound care per ortho - Thank you for the consult, will continue to follow MILLA FLYNN DO May 20, 2025 21:31
[2025-05-20] MEDS: VANCOMYCIN LEVEL IV ONE (22:40)
[2025-05-21] VITALS (7 sets, daily range): BP systolic 110–143; BP diastolic 52–69; PULSE 76–85; RESP 16–19; TEMP 98.9–99.7; O2SAT 93–96
[2025-05-21] MEDS: ceFAZolin 2gm/dext,iso 50mL 50 ML IV SCH (00:09)
--- NOTE | 2025-05-21 07:05 | PROGRESS NOTE ---
Progress Note Ortho Ortho Post Op Day #: 2 Follow Up Progress Note Patient had an uneventful overnight. His pain is well controlled. Dressing is clean and dry this morning with no reinforcement needed. Neurovascularly intact distally. He does state he feels instability with the knee when it is not protected by a pillow. He is able to weight bear and ambulate with assistance. Awaiting further culture results and continued management through PICC line IV antibiotics. Infectious disease consultation occurred and we will continue with further management. ROS ROS No new complaints Exam Exam: Alert and Oreinted x4, Vital signs are stable, In no acute distress, Dressing clean and dry, Wound clean and dry, Distal neurovasc intact Problem/Assessment/Plan Assessment\Plan: Doing Well, Start Physicial Therapy Problems/Diagnosis: (1) Mechanical complication associated with orthopedic device (2) Infected prosthetic knee joint Results/Orders Result Diagram: 05/20/25 0605 05/20/25 0605 [facility] May 21, 2025 07:05
[2025-05-21 09:24] LABS: MEAN PLATELET VOLUME 8.5 FL (7.4-10.4); RED CELL DISTRIBUTION WIDTH 13.3 % (11.5-14.5)
[2025-05-21 09:36] LABS: CREATININE 0.66 MG/DL (0.60-1.10); TOTAL CARBON DIOXIDE 28.8 MMOL/L (24-32); eCRCL 107 ML/MIN; eGFR > 90 ML/MIN
[2025-05-21] MEDS ORDERED: LOSA-415 PO (15:16)
--- NOTE | 2025-05-21 16:17 | PROGRESS NOTE ---
Daily Progress Note Providers to CC ~ Antibiotic Timeout Antibiotic Ordered?: Yes Subjective No new complaints, patient is seen resting comfortably Objective Vital Signs Date Time Temp Pulse Resp B/P (MAP) Pulse Ox O2 Delivery O2 Flow Rate FiO2 05/21/25 14:04 77 112/53 (72) 05/21/25 14:00 16 05/21/25 12:05 99.0 93 Room Air 05/21/25 04:28 1.0 97 Result Diagram: 05/21/25 0900 05/21/25 0900 Awake cooperative in no acute distress HEENT normocephalic atraumatic extraocular movements are intact, sclerae is anicteric Neck supple, no JVD Chest: Clear to auscultation, no wheezes crackles rhonchi Heart: Regular rate rhythm, no murmur or gallop rub Abdomen is soft nontender no organomegaly Extremities no cyanosis clubbing or edema Neuro exam grossly nonfocal Musculoskeletal: Right leg is in a immobilizer. Coagulation Studies Laboratory Tests Test 05/19/25 10:58 Prothrombin Time 11.4 SECONDS (9.0-12.0) INR International Normalized Ratio 1.1 INR Activated Partial Thromboplast Time 33 SECONDS (22-32) H Other Results Medications reviewed Problem\Assessment\Plan Problems/Diagnosis: (1) Infected prosthetic knee joint Infected prosthetic right knee: Patient was recently discharged with six weeks of antibiotics, presented with redness and swelling around the right knee. Continue IV Zosyn and vancomycin. Awaiting ID consultation. Normocytic normochromic anemia Post op anemia- expected occurrence with a hardware removal not a complication of surgery Continue monitor daily labs PRBC if Hb is less than 7 Moderate protein malnutrition Continue ensure enlive PO Hypothyroidism History of Maricruz's thyroiditis Continue home med levothyroxine 150 mcg CAD, history of [place] s/p stent placement: Patient is asymptomatic. Continue aspirin. Continue aspirin. Chronic Congestive heart failure with reduced ejection fraction-LVEF is 45% on 05/01/25-not in acute decompensation: Continue monitor I's and o's. Continue spironolactone, metoprolol Jardiance and lisinopril. Hyperlipidemia: Continue atorvastatin Presently not on DVT prophylaxis for now due to postop anemia and bleeding from postop site. Code status: Full code Date of Service: May 21, 2025 Billing Provider: WOJCIECH CR MD Common Visit Codes: [id number] INP/OBS CARE(HIGH) WOJCIECH CR MD May 21, 2025 16:17
--- NOTE | 2025-05-21 18:31 | PROGRESS NOTE ---
Progress Note ID Providers to CC ~ Progress Note Progress Note: Antibiotic Days: Ancef 1 Lines: PICC Micro: 04/29 Blood- MSSA 04/30 Operative- MSSA 05/01 Blood- negative 05/18 Blood- ngtd 05/19 Operative- ngtd Subjective: Patient was seen after PT and was annoyed. He has been doing antibiotics at home and hopes to make enough progress to do that again. So far, cultures are not growing through his home therapy Objective: Vitals: Afebrile, 76, 19, 110/52, 93% on RA General: Alert, NAD CV: Regular Resp: Clear anteriorly Abd: Soft, nontender, nondistended Ext: R knee in postop dressing Lines: PICC occlusively dressed Laboratory Tests 05/21/25 09:00 Assessment: // R knee PJI s/p washout and exchange of the tibial polyethylene 04/30 followed by hardware removal 05/19. His original cultures grew MSSA and yesterdays (taken on Ancef, Rifampin) are ngtd // Recent MSSA septicemia, source as above. No vegetation on 2D echo. Repeats cleared 05/01 and he remains on his course of treatment // Antibiotic Allergies: none known Plan: - Continue Ancef - Follow up pending operative cultures and amend therapy as necessary - May need 6 weeks again from most recent surgery, will see what his new cultures do - Monitor inflammatory markers - Wound care per ortho - Dispo planning: back to home infusion if safe from PT perspective - Will continue to follow MILLA FLYNN DO May 21, 2025 18:31
[2025-05-22 05:15] LABS: MEAN PLATELET VOLUME 8.7 FL (7.4-10.4); RED CELL DISTRIBUTION WIDTH 13.3 % (11.5-14.5)
[2025-05-22 05:31] LABS: CREATININE 0.84 MG/DL (0.60-1.10); TOTAL CARBON DIOXIDE 29.0 MMOL/L (24-32); eCRCL 84 ML/MIN; eGFR > 90 ML/MIN
[2025-05-22 06:17] VITALS: BP 133/57; PULSE 77; RESP 20; TEMP 99.1; O2SAT 94
[2025-05-22] MEDS: cholecalciferol (vitamin D3) 1,000 unit (25mcg) tablet PO SCH (08:20)
[2025-05-22 10:35] VITALS: BP 138/68; PULSE 70; RESP 16; TEMP 99.1; O2SAT 97
[2025-05-22 10:49] VITALS: BP 132/71; PULSE 71; RESP 16; TEMP 99.4
[2025-05-22 11:04] VITALS: BP 133/69; PULSE 69; RESP 18; TEMP 99.4
[2025-05-22 12:00] VITALS: BP 142/72; PULSE 72; RESP 18; TEMP 99
[2025-05-22 12:57] VITALS: BP 141/58; PULSE 71; RESP 20; TEMP 98.8
--- NOTE | 2025-05-22 17:31 | PROGRESS NOTE ---
Progress Note ID Providers to CC ~ Progress Note Progress Note: Antibiotic Days: Ancef 2 Lines: PICC Micro: 04/29 Blood- MSSA 04/30 Operative- MSSA 05/01 Blood- negative 05/18 Blood- negative 05/19 Operative- negative Subjective: Patient's operative cultures are confirmed negative. He was given resumption orders for [employer] Objective: Vitals: Afebrile, 72, 18, 142/72, 97% on RA General: Alert, NAD CV: Regular Resp: Clear anteriorly Abd: Soft, nontender, nondistended Ext: R knee in postop dressing Lines: PICC occlusively dressed Laboratory Tests 05/22/25 04:31 Assessment: // R knee PJI s/p washout and exchange of the tibial polyethylene 04/30 followed by hardware removal 05/19. His original cultures grew MSSA and yesterdays (taken on Ancef, Rifampin) remained negative // Recent MSSA septicemia, source as above. No vegetation on 2D echo. Repeats cleared 05/01 and he remains on his course of treatment // Antibiotic Allergies: none known Plan: - Scripts for home infusion Ancef 2 gm IV q8 hours CBC, CMP, ESR, CRP weekly Stop date: 06/30/25 Please remove PICC once therapy is complete - Follow up in ID office prior to stop date MILLA FLYNN DO May 22, 2025 17:31
--- NOTE | 2025-06-01 07:13 | DISCHARGE SUMMARY ---
Discharge Summary Providers to CC ~ Discharge Summary Admission Diagnosis: RIGHT KNEE SWELLING Hospital Course DATE OF ADMISSION: 05/18/2025 DATE OF DISCHARGE: 05/22/2025 Discharge Diagnosis\Comment: Infected prosthetic right knee Operations\Procedures: Removal, right total knee arthroplasty with implantation of antibiotic spacer. Consultants: Amanda Kruger MD Complications: None Condition on DC: Stable Continued Medications: Albuterol Sulfate/Budesonide (Airsupra 90-80 Mcg Inhaler) 90 Mcg-80 Mcg/Actuation Hfa.aer.ad 1 PUFF NEB Q4H PRN for SOB or wheezing Aspirin (Ecotrin*) 81 Mg Tablet.dr 1 TAB PO DAILY Atorvastatin Calcium (Atorvastatin Calcium) 40 Mg Tablet 1 TAB PO DAILY Cefazolin Sodium/Dextrose,Iso (Cefazolin 1 Gm-D5w Bag) 1 Gram/50 Ml Piggyback 1 GM IV Q8H for 42 Days, #126 IV.SOLN Cholecalciferol (Vitamin D3) (Vitamin D3) 125 Mcg (5000 Unit) Capsule 1 CAP PO TWICE WEEKLY Empagliflozin (Jardiance) 10 Mg Tablet 10 MG PO DAILY for 30 Days, #30 TAB Lactobacillus Rhamnosus (Culturelle) 10 Billion Cell Capsule 19720 MMU PO BID for 30 Days, #60 CAP Levothyroxine Sodium* (Synthroid*) 88 Mcg Tablet 150 MCG PO DAILY for 30 Days, #30 TAB Losartan Potassium* (Cozaar*) 25 Mg Tablet 1 TAB PO DAILY, TAB Metoprolol Succinate (Metoprolol Succinate) 25 Mg Tab.sr.24h 0.5 TAB PO DAILY for 30 Days, #30 TAB 0 Refills Omeprazole (Omeprazole) 20 Mg Capsule.dr 1 CAP PO DAILY, CAP 0 Refills Oxycodone Hcl (Roxicodone) 5 Mg Tablet 1 TAB PO Q4H PRN for pain Rifampin (Rifampin) 300 Mg Capsule 300 MG PO BID for 42 Days, #84 CAP Spironolactone (Spironolactone) 25 Mg Tablet 1 TAB PO QAM [Vitamin B12] () 1000 MCG PO DAILY Discharge Summary: Reason for admission: 70 years old male presented to the ER with a 2-day history of progressively worsening right knee pain, swelling and erythema. Patient reported that over the last 24 hours, his right knee has doubled in side become increasingly red warm and painful. Patient was recently admitted from 04/29/2025 to 05/04/2025 for debridement and revision of an infected prosthetic right knee. Culture from the joint and blood were positive for Staph aureus. Please refer to admission H&P for further details Hospital course: Patient was admitted and monitored on the hospital was as follows. # Prosthetic knee joint infection: Patient underwent washout and exchange of the tibial polyethylene 1013 followed by hardware removal on 05/19/2025. The original cultures grew MSSA and the repeat cultures were negative to date. ID was consulted. Echocardiogram was done which showed no vegetation. Patient discharged on 2 g of IV Ancef every 8 hours per ID recommendations with a stop date of 06/30/2025. Once antibiotics have been completed, PICC line will need to be removed which has been placed. # Hypothyroidism: Continued on levothyroxine # Hypertension: Continuing on losartan metoprolol # History of CAD: Patient has had NH status post stent placement. Continued on aspirin. # Chronic CHF without exacerbation: Patient has an EF of 45% on 05/01/2025. Continued on , spironolactone, metoprolol and Jardiance and lisinopril # Hyperlipidemia continued on atorvastatin Discharge day exam : I examined the patient on the day of discharge. Awake cooperative in no acute distress HEENT normocephalic atraumatic extraocular movements are intact, sclerae is anicteric Neck supple, no JVD Chest: Clear to auscultation, no wheezes crackles rhonchi Heart: Regular rate rhythm, no murmur or gallop rub Abdomen is soft nontender no organomegaly Extremities no cyanosis clubbing or edema Neuro exam grossly nonfocal Musculoskeletal: Right leg is in a immobilizer. Disposition Home with home health . *Problems/Diagnosis: (1) Mechanical complication associated with orthopedic device Status: Chronic (2) Infected prosthetic knee joint Status: Acute Total Time Spent on D/C: > 30 Minutes Date of Service: May 22, 2025 Billing Provider: WOJCIECH CR MD Common Visit Codes: 35313-NDD/OBS DISCH DAY >30min WOJCIECH CR MD Jun 01, 2025 07:11
== END 2025-05-22 16:00 | disposition home health service (06) | DRG 466 ==
LOC: ER 19:41 → ED HOLD 21:49 → EDBEDREQ 05-19 06:53 → SUR 3N 05-19 07:45
PROVIDERS: ADMIT Internal Medicine; ATTEND Family Medicine
PROC: 0SPC0JZ Removal of Synthetic Substitute from Right Knee Joint, Open Approach (ICD-10-PCS; 2025-05-19)
PROC: 3E0U029 Introduction of Other Anti-infective into Joints, Open Approach (ICD-10-PCS; 2025-05-19)
PROC: 0SRC0J9 Replacement of Right Knee Joint with Synthetic Substitute, Cemented, Open Approach (ICD-10-PCS; principal; 2025-05-19 12:25)
PROC: 30233N1 Transfusion of Nonautologous Red Blood Cells into Peripheral Vein, Percutaneous Approach (ICD-10-PCS; 2025-05-22)
DX: T84.53XA Infection and inflammatory reaction due to internal right knee prosthesis, initial encounter (principal); N17.0 Acute kidney failure with tubular necrosis; E44.0 Moderate protein-calorie malnutrition; I50.22 Chronic systolic (congestive) heart failure; I11.0 Hypertensive heart disease with heart failure; D64.9 Anemia, unspecified; E03.9 Hypothyroidism, unspecified; X58.XXXA Exposure to other specified factors, initial encounter; Y83.8 Other surgical procedures as the cause of abnormal reaction of the patient, or of later complication, without mention of misadventure at the time of the procedure; E78.5 Hyperlipidemia, unspecified; I25.10 Atherosclerotic heart disease of native coronary artery without angina pectoris; Y92.89 Other specified places as the place of occurrence of the external cause; Z79.82 Long term (current) use of aspirin; Z91.013 Allergy to seafood; Z79.899 Other long term (current) drug therapy; Z68.28 Body mass index [BMI] 28.0-28.9, adult; Z79.84 Long term (current) use of oral hypoglycemic drugs; Z95.5 Presence of coronary angioplasty implant and graft
CPT/HCPCS: 36415; 36430; 71045; 73562; 80048; 80053; 80202; 81001; 82948; 83540; 83550; 83605; 83735; 84145; 85007; 85025; 85610; 85651; 85730; 86140; 86885; 86900; 86901; 86920; 87040; 87070; 87075; 87102; 87176; 93005; 96374; 96375; 97116; 97161; 97530; 99285; A4215; A4615; A4618; A6253; A6446; A6449; A6590; A7000; C1713; C1776; G0378; J0690; J1171; J2250; J2270; J2405; J2543; J3010; J3373; J3490; J7030; J7040; J7120; P9016